=== PATIENT | male | born 1955 | race Caucasian/White ===

== ENCOUNTER 2016-08-19 16:31 | Inpatient (IN) | payer MEDICARE ==
[~2016-08-19] VITALS: Ht 172.7 cm; Wt 93.6 kg
[~2016-08-19 16:31] MED LIST: AMLO10TA3 PO; ASPI-973 PO; CALC500T9 PO; CARV25TA PO; CARV25TA2 PO; FINA5TAB9 PO; FURO80TA83 PO; HYDR-4003 PO; KLO1T PO; LACT10SO60 PO; LISI40TA PO; LON25 PO; RIFA500P3 MC; VIT1TABL50 PO
[2016-08-19 16:40] VITALS: BP 148/80; PULSE 112; RESP 19; O2SAT 91
[2016-08-19 18:10] LABS: BASOPHILS % (AUTO) 2.5 % (0-3); EOSINOPHILS % (AUTO) 4.1 % (0-5); MONOCYTES % (AUTO) 8.3 % (4-12); Mean Corpuscular Hemoglobin 31.7 pg (27.0-35.0); Mean Corpuscular Volume 90.9 fL (81-100); NEUTROPHILS % (AUTO) 63.8 % (40-74); Platelet Count 138 bil/L (150-400)
--- NOTE | 2016-08-19 18:14 | DRSVH ---
PROCEDURE: X-RAY CHEST ONE VIEW, PORTABLE ([id number]) INDICATIONS: 61 year-old male with shortness of breath. TECHNIQUE: One view of the chest was acquired. COMPARISON: [facility], , CHEST 2VW, 11/08/2013, 15:55. FINDINGS: Surgical changes and devices: None. Lungs and pleura: No pleural effusions or pneumothorax. Lungs are clear, except for patchy right lo wer lung airspace opacities. Mediastinum: Mediastinal contours appear normal. Cardiomegaly is unchanged. There is aortic atheros clerosis. Bones and chest wall: No suspicious bony lesions. Overlying soft tissues appear unremarkable. IMPRESSION: Cardiomegaly as before, along with right lower lung aspiration or early pneumonia. Dictated by: Gonzalez Abdul M.D. on 08/19/2016 at 18:12 Approved by: Gonzalez Abdul M.D. on 08/19/2016 at 18:12
--- NOTE | 2016-08-19 18:16 | DRSVH ---
PROCEDURE: X-RAY LEFT FOOT COMPLETE, MINIMUM THREE VIEWS ([id number]) INDICATIONS: 61 year-old male with left foot and heel pain. TECHNIQUE: 3 views of the foot were acquired. COMPARISON: [facility], CR, XR TOE(S) 2VW LT, 06/24/2016, 17:39. FINDINGS: Bones: No fractures or dislocations. No bony destruction or erosions. Soft tissues: There is widespread small vessel atherosclerosis, consistent with diabetes mellitus an d/or hyperparathyroidism. No radiopaque soft tissue foreign bodies. No soft tissue gas. No tibiotalar joint effusion. Achilles tendon appears normal. IMPRESSION: No radiographic evidence for advanced osteomyelitis. Radiographs would have decreased sen sitivity for early bone infection. Dictated by: Gonzalez Abdul M.D. on 08/19/2016 at 18:14 Approved by: Gonzalez Abdul M.D. on 08/19/2016 at 18:14
--- NOTE | 2016-08-19 20:14 | ED.REPORT ---
HPI-General Illness Date of Service Aug 19, 2016 ED Provider: Bety Scott MD History of Present Illness: Mr. Jatin Faulkner is a 61 year old gentleman with a PMH significant for CKD V, Afib, HTN, HEP C/ETOH liver disease, who presents to [facility] emergency department with 5 day history of shortness of breath. He reports missing dialysis on Friday as well as make-up dialysis on Friday. He denies headache, dizziness, syncope, cough, chest pain, abdominal pain, vomiting, constipation, and diarrhea. He reports shortness of breath and mild nausea. His outpatient paste worker is Dr. Velez and his normal dialysis schedule is [facility]. Nursing Notes Stated Complaint: SHORTNESS OF BREATH Chief Complaint: General Complaint Nursing Notes Reviewed: Yes Allergies: Coded Allergies: Penicillins (Verified Allergy, Severe, 06/24/16) clonidine (Verified Allergy, Intermediate, N/V, 06/24/16) Scheduled Amlodipine (Amlodipine) 10 Mg Tablet 10 MG PO HS Aspirin (Aspirin) 81 Mg Tablet 81 MG PO DAILY Carvedilol (Coreg) 25 Mg Tablet 50 MG PO QPM Carvedilol (Carvedilol) 25 Mg Tablet 25 MG PO MORNING Finasteride (Finasteride) 5 Mg Tablet 5 MG PO DAILY Furosemide (Lasix) 80 Mg Tablet 160 MG PO BID Lactulose (Lactulose) 20 Gm/30 Ml Solution 20 GM PO TID Lisinopril (Lisinopril) 40 Mg Tablet 40 MG PO DAILY Rifaximin (Rifaximin) 500 Gm Powder 500 GM MC BID Vit B Cmplx 3/FA/Vit C/Biotin (Nephro-Swetha Rx) 1 Each Tablet 1 EACH PO DAILY Scheduled PRN Calcium Carbonate (Tums) 500 Mg Tab.chew 500 MG PO TID PRN PRN For Dyspepsia or Heartburn Clonazepam (Clonazepam) 1 Mg Tab 1 MG PO HS PRN PRN For Dizziness Hydrocodone-Acetaminophen 5-325 mg (Hydrocodone-Acetaminophen 5-325 mg) 1 Each Tablet 2 TAB PO TID PRN PRN For Pain General Time Seen by MD: 20:13 Chief Complaint Breathing problem Past Medical History Past Medical History Chronic kidney disease, stage 5, on dialysis now for two and half years. Peripheral vascular disease with both surgeries and stents placed. Reports: Congestive heart failure, Diabetes mellitus, Hypertension Smoking History Former Smoker Social History Alcohol Use: Denies alcohol use Drug Use: Denies drug use Ambulatory Status Independent Review of Systems Full Review of Systems Constitutional: Reports: Fatigue, Weakness - generalized Respiratory: Reports: Shortness of breath GI: Reports: Nausea Complete sys rev & neg: except as marked. Physical Exam General: Elderly gentlemen lying in bed in no acute distress, well-developed, well-nourished, appropriately interactive HEENT: Normocephalic, atraumatic. External ears without defect. Pupils equal, round, and reactive to light and accommodation. Anicteric sclerae, moist conjunctivae, and no lid lag. Oropharynx free of erythema and cobble stoning with moist mucosa. Neck: Supple with full range of motion. No jugular venous distension. No bruits. No lymphadenopathy or thyromegaly. Cardiovascular: Regular rate and rhythm with no murmurs, rubs, or gallops appreciated Pulmonary: Clear to auscultation bilaterally with no crackles, wheezes, or rhonchi. Normal respiratory effort with no use of accessory muscles. Abdomen: Bowel tones present. Soft, nontender, nondistended. No hepatosplenomegaly or masses appreciated, obese with tense abdomen. Extremities: No clubbing, cyanosis, lower extremity edema present, or lymphadenopathy appreciated. left lower extremity wound... Skin: Normal temperature, turgor, and texture; no rash, ulcers, or subcutaneous nodules appreciated. Neurological: Cranial nerves grossly intact. Normal muscle strength, tone, and bulk. Reflexes, coordination, and sensory function within normal limits. No known gait impairment. Psychiatric: Normal mood and affect.Alert and oriented to person, place, and time. Vital Signs Vital Signs Date Time Temp Pulse Resp B/P Pulse Ox O2 Delivery O2 Flow Rate FiO2 08/19/16 16:40 36.8 112 19 148/80 91 Room Air Interpretation & Diagnostics Lab Results Interpretation Result Diagram: 08/21/16 0540 08/21/16 0540 Test 08/19/16 18:01 Lactic Acid Level 0.8mmol/L (0.4-2.0) Hold Hall Top Tube Received (Received) Re-Eval/Medical Decision Med Decision/Clinical Course 1. Acute dyspnea, present on admission. Active. - Not on home O2. - CXR - possible left lower lobe pneumonia. - Rapid influenza pending. - IV Rocephin. 2. CKD V, dialysis dependent, present on admission. Active. - Recieved dialysis today. Needs another dialysis tomorrow. - His outpatient paste worker is Dr. Velez and his normal dialysis schedule is [facility]. 3. Chronic A fib with RVR, present on admission. Active. - Home Carvedilol 4. Symptomatic ascites, present on admission. Active. - History of Hep C / ETOH use disorder. 5. Chronic Lower left extremity wound, present on admission. Active. 6. Chronic leukopenia, present on admission. Active. - WBC 3.1, currently around baseline. 7. Chronic Hypertension, present on admission. Stable. Continue home medications. Discharge & Departure Primary Impression: Shortness of breath Additional Impression: Renal failure Disposition: ADMITTED TO HOSPITAL Discharge Condition All VS Reviewed: Yes Condition: No Change Referrals: Juan Manuel Yadav MD (PCP) Attending Statement Pt seen and examined with Dr Ye. Agree with exam, assessment and plan as above. Admitted to hospital. Bety Scott MD Aug 19, 2016 20:14 ROMEO YE DO Aug 19, 2016 20:35 Carbon Dioxide Level 24mmol/L (18-29) Blood Urea Nitrogen 32mg/dL (8-27) Creatinine 6.61mg/dL (0.76-1.27) Estimat Glomerular Filtration Rate 9mL/min (>59) Glucose Level 114mg/dL (60-99) Lactic Acid Level 0.8mmol/L (0.4-2.0) Calcium Level 8.6mg/dL (8.5-10.1) Total Bilirubin 0.3mg/dL (0.0-1.2) Aspartate Amino Transf (AST/SGOT) 23U/L (0-50) Alanine Aminotransferase (ALT/SGPT) 17U/L (0-44) Alkaline Phosphatase 89U/L (25-160) Total Protein 6.7g/dL (6.4-8.4) Albumin 3.8g/dL (3.4-5.0) Hold Hall Top Tube Received (Received) Re-Eval/Medical Decision Med Decision/Clinical Course 1. Acute dyspnea, present on admission. Active. - Not on home O2. - CXR - possible left lower lobe pneumonia. - Rapid influenza pending. - IV Rocephin. 2. CKD V, dialysis dependent, present on admission. Active. - Recieved dialysis today. Needs another dialysis tomorrow. - His outpatient paste worker is Dr. Velez and his normal dialysis schedule is [facility]. 3. Chronic A fib with RVR, present on admission. Active. - Home Carvedilol 4. Symptomatic ascites, present on admission. Active. - History of Hep C / ETOH use disorder. 5. Chronic Lower left extremity wound, present on admission. Active. 6. Chronic leukopenia, present on admission. Active. - WBC 3.1, currently around baseline. 7. Chronic Hypertension, present on admission. Stable. Continue home medications. Discharge & Departure Primary Impression: Shortness of breath Additional Impression: Renal failure Disposition: ADMITTED TO HOSPITAL Discharge Condition All VS Reviewed: Yes Condition: No Change Referrals: Juan Manuel Yadav MD (PCP) Bety Scott MD Aug 19, 2016 20:14 ROMEO YE DO Aug 19, 2016 20:35
[2016-08-19] MEDS ORDERED: cefTRIAXone Inj 2,000 MG in IV Premix 1 EACH IV ONE (21:35)
[2016-08-19] MEDS ORDERED: oxyCODONE-Acetamin 5-325 mg Tablet PO PRN (22:45)
[2016-08-19] MEDS ORDERED: Alum-Mag Hydrox-Simeth 30 mL Suspension PO PRN (22:45)
[2016-08-19] MEDS ORDERED: Polyethylene Glycol (PEG) 17 Gm Powder PO PRN (22:45)
[2016-08-20] VITALS (9 sets, daily range): BP systolic 137–165; BP diastolic 79–95; PULSE 94–122; RESP 18–20; O2SAT 93–97
[2016-08-20] MEDS ORDERED: Meropenem Inj 2,000 MG in 0.9% Sodium Chloride 100 ML IV SCH (00:30)
[2016-08-20 00:48] LABS: INR 1.05 ratio
--- NOTE | 2016-08-20 04:10 | PCM.HPMED ---
Subjective Date of Service Aug 19, 2016 Primary Provider: Admitting Physician: Kaitlin Hua MD Primary Care Physician: Juan Manuel Yadav MD Attending Physician: Kaitlin Hua MD Chief Complaint: Weakness, increasing SOB, and "foggy" History of Present Illness: 61 year old male with hx of T2DM, ESRD on hemodialysis, PVD, Afib not on anticoagulation and hepatitis C with cirrhosis and ascites presents to the ED with 3 days of increasing weakness, SOB, and pain in his left foot.He states that the cough started 3 days ago, has been intermittent, and non-productive. He endorses intermittent nausea and anorexia but denies fever, chills, or vomiting/diarrhea. He states that he has also had increasing pain in his left foot second to severe peripheral vascular disease with calcification. He missed his dialysis appointment on Friday and missed the follow-up dialysis appointment on Friday. However, he did have dialysis today from Dr. Velez, having 3.5L of fluid removed in 3 hours. His SOB continued to get worse and he came to the ED for evaluation. His PVD is managed here by Dr. Gómez. He underwent a cath procedure 2 weeks ago in an effort to improve blood flow, which says failed and will now be managed by [facility] or . In the ED the patient was given ceftriaxone for presumed pneumonia by CXR; Review of Systems: A comprehensive review of systems was conducted with the patient and found to be negative except as above in the History of Present Illness. Allergies Coded Allergies: Penicillins (Verified Allergy, Severe, 06/24/16) clonidine (Verified Allergy, Intermediate, N/V, 06/24/16) Home Medications Amlodipine (Amlodipine) 10 Mg Tablet 10 MG PO HS Aspirin (Aspirin) 81 Mg Tablet 81 MG PO DAILY Carvedilol (Coreg) 25 Mg Tablet 50 MG PO QPM Carvedilol (Carvedilol) 25 Mg Tablet 25 MG PO MORNING Finasteride (Finasteride) 5 Mg Tablet 5 MG PO DAILY Furosemide (Lasix) 80 Mg Tablet 160 MG PO BID Lactulose (Lactulose) 20 Gm/30 Ml Solution 20 GM PO TID Lisinopril (Lisinopril) 40 Mg Tablet 40 MG PO DAILY Minoxidil (Minoxidil) 2.5 Mg Tablet 2.5 MG PO BID Rifaximin (Rifaximin) 500 Gm Powder 500 GM MC BID Vit B Cmplx 3/FA/Vit C/Biotin (Nephro-Swetha Rx) 1 Each Tablet 1 EACH PO DAILY Calcium Carbonate (Tums) 500 Mg Tab.chew 500 MG PO TID PRN PRN For Dyspepsia or Heartburn Clonazepam (Clonazepam) 1 Mg Tab 1 MG PO DAILY PRN PRN For Dizziness Hydrocodone-Acetaminophen 5-325 mg (Hydrocodone-Acetaminophen 5-325 mg) 1 Each Tablet 2 TAB PO TID PRN PRN For Pain PMH Chronic kidney disease, stage 5, on dialysis now for two and half years. Peripheral vascular disease with both surgeries and stents placed. Reports: Congestive heart failure, Diabetes mellitus, Hypertension Hepatitis C Surgical History Cholescystectomy Bilateral lower extremity bypass x 2 Family History Mom of unknown cancer father of cardiac disease Social History Hx Alcohol Use: Yes (former heavy drinker) Hx Substance Use: Yes (IV drug use- heroin and methamphetamines, last use 12 years ago) Hx Tobacco Use: No Smoking Status: Former Smoker (20+ ppd hx) Living Arrangement: with Family (with exwife) Exam Vital Signs Vital Sign - Last Date Time Temp Pulse Resp B/P Pulse Ox O2 Delivery O2 Flow Rate FiO2 08/19/16 16:40 36.8 112 19 148/80 91 Room Air Exam General: No acute distress, well-developed; seems flat affect HEENT: PERRLA; old petechia-like scleral hemorrhages Neck: Supple with full range of motion. JVD present. No bruits. No lymphadenopathy or thyromegaly. Cardiovascular: Irregularly irregular; no m/r/g Pulmonary: CTA but decreased; mild diffuse wheezes and course airways Abdomen: significant ascites; no fluid wave demonstrated; +bs; mildly tender in URQ; hepatomegaly Extremities: No clubbing; cyanosis in lower extremities bilaterally, moderate edema appreciated. Skin: good turgor; ulcer on left 2nd toe; ulcer on sacrum; Neurological: Cranial nerves grossly intact. sensation intact throughout Psychiatric: flat affect. Alert and oriented to person, place, and time. Lab and Diagnostics Result Diagram: 08/19/16180008/19/161800 X-Rays, CTs and MRIs Chest X-ray IMPRESSION: Cardiomegaly as before, along with right lower lung aspiration or early pneumonia. Dictated by: Gonzalez Abdul M.D. on 08/19/2016 at 18:12 Left Foot X-ray IMPRESSION: No radiographic evidence for advanced osteomyelitis. Radiographs would have decreased sensitivity for early bone infection. Dictated by: Gonzalez Abdul M.D. on 08/19/2016 at 18:14 12-lead ECG irregularly irregular with rate < 120; concern for mild ST depression in lateral leads Assessment & Plan Confusion and weakness in patient with hepato-renal syndrome - Pt complains of three days of general malaise with stable ascites - Pt missed dialysis on Friday and Friday and then had 3.5L taken off in 3 hours today - BUN mildly elevated, no hypoglycemia, questionable sepsis as below; blood pressure elevated without headache - Ammonia level ordered - Electrolytes within reason with mild hyponatremia and hypochloremia - Continuing home lactulose Acute fluid overload second to ESRD second to htn, dm2, and hep c; present on admission, ongoing - JVD, edema, moist membranes, appropriate skin turgor - CXR appears to be congested with cephalization - Discussed case with Dr. Bowen over the phone and she will see him tomorrow morning for additional evaluation - Avoid additional fluid as much as possible Acute on chronic systolic CHF; present on admission; ongoing - Last ECHO was 12/20/14 with no EF but recognition of dilated LV - CXR appears to be congested with cephalization; pitting edema in LE - Cannot diurese due to kidney failure - ECHO tomorrow - Continue home carvedilol and lisinopril tomorrow - Hold furosemide until seen by nephrology Questionable sepsis second to questionable aspiration pneumonia - leukopenia, tachycardia, no fever, no tachypnea all in the setting of ESRD with chronic leukopenia and atrial fibrillation - no lactate elevation - Very low suspicion for ongoing sepsis and will not give fluid due to his current overload picture with dyspnea. Questionable pneumonia - no cough, no fever, no chills, but does complain of sob that started today - RLL consolidation on CXR per radiology, along with pulmonary edema pic - Started on Ceftriaxone in ED prior to any blood cultures - Blood cultures ordered x 2 - Changed abx to meropenem; pt has allergy to penicillins and will watch for cross-sensitivity - Sputum cx ordered; bcx ordered but taken after abx given Ulcerated and necrotic appearing left 2nd toe second to severe peripheral vascular disease s/p bilateral bypass grafts x 2 - CXR of left foot did not identify early osteomyelitis; does look like toe is becoming necrotic; - Dr. Gómez is currently working this patient up for intervention outpatient; per pt, recent attempt to stent arteries failed two weeks ago due to calcinosis - Wound care consult Chronic atrial fibrillation not on anticoagulation - pt currently in afib on exam and on EKG - taking carvedilol at home for rate control; rate currently 112 - Check PT/INR - consider starting Lovenox and until warfarin therapeutic in AM - Restart home carvedilol hepatitis c with cirrhosis - untreated, acquired 15+ years ago from IV drug abuse with cocaine and heroin - Not following with ID or with junior java developer - prominent ascites; consider tapping in AM; low suspicion for SBP at this point as there is no abdominal tenderness - PT/INR pending Chronic leukopenia - likely second to ESRD and chronic hepatic cirrhosis second to hepatitis C and alcohol/drug abuse - will monitor but unlikely to improve Chronic and severe peripheral vascular disease - worked up outpatient; ulcer on left 2nd toe; interventions performed bilaterally with bypassx2 on each side - edema present in LE with cyanosis below the knee DM2 not on medications - Mildly hyperglycemic on admit - Consider starting on insulin correctional in AM for BG > 180 Chronic htn - Continue home medications Dispo: Pt is being admitted to general medical floor with anticipated LOS < 2 midnights; however, should patient decompensate or need extended inpatient dialysis and diagnostics, will change to inpatient. MED REC TO BE DONE BY DAY TEAM Addendum day hospitalist> pt looked overloaded based on exam, hx suggested significant wt gain, noncompliance to HD, CXR showed pul vascular congestion, no s/s of PNA, procalcitoninx2 minimal, remained afebrile, will tx as CHF exacerbation, likely with additional HD session, appreciate renal input. stop meropenem. Lt second toe looked discolored but unchanged since last angioplasty 08/08 per patient, only pain has increased mildly, this is not major concern, pt already has plan to refer to [facility] in the future, pt stated that didn't have adequate device for calcified occlusion for his lesion. Therefore will defer further for PVD at this point. Attending Statement Pt seen and examined by myself and agree with above plan. Kavin Ball DO Aug 19, 2016 23:35 Jian Velásquez MD Aug 20, 2016 12:08 Kaitlin Hua MD Aug 21, 2016 06:14
[2016-08-20] MEDS: oxyCODONE-Acetamin 5-325 mg Tablet PO PRN ×3 (05:11→15:40)
--- NOTE | 2016-08-20 05:39 | NUR ---
Admit Admitted pt from ED around 0015. Pt denies chest pain, but has been complaining of pain on his left leg. Administered Percocet 2 tab PRN for pain control. Pt has been having SOB on RA, provide 2LPM o2 for comfort and no complaints after. Admission question done and med rec done via pt interview. Will continue to monitor.
[2016-08-20 05:46] LABS: BASOPHILS % (AUTO) 2.9 % (0-3); EOSINOPHILS % (AUTO) 3.9 % (0-5); MONOCYTES % (AUTO) 9.4 % (4-12); Mean Corpuscular Hemoglobin 30.9 pg (27.0-35.0); Mean Corpuscular Volume 91.7 fL (81-100); NEUTROPHILS % (AUTO) 62.1 % (40-74); Platelet Count 127 bil/L (150-400)
--- NOTE | 2016-08-20 08:27 | DRSVH ---
PROCEDURE: X-RAY CHEST ONE VIEW, PORTABLE ([id number]) INDICATIONS: dyspnea TECHNIQUE: One view of the chest was acquired. COMPARISON: [facility], CR, XR CHEST 1VW (PORTABLE), 08/19/2016, 17:26. FINDINGS: Surgical changes and devices: None. Lungs and pleura: No pleural effusions or pneumothorax. Lungs are edematous. Mediastinum: Mediastinal contours appear normal. Heart size is mildly enlarged. Bones and chest wall: No suspicious bony lesions. Overlying soft tissues appear unremarkable. IMPRESSION: Chronic CHF pattern with mild acute exacerbation. An alternative explanation for the cur rent appearance is an atypical pneumonia present bilaterally. Dictated by: Jose Ellington M.D. on 08/20/2016 at 8:25 Approved by: Jose Ellington M.D. on 08/20/2016 at 8:25
[2016-08-20] MEDS: Lactulose 20 Gm/30 mL 30 mL Syrup PO SCH ×5 (08:30→21:39)
[2016-08-20] MEDS ORDERED: Meropenem 1 Gm/100 mL NS Minibag Plus IV SCH ×2 (08:30)
[2016-08-20] MEDS ORDERED: 0.9% Sodium Chloride 250 ML ONE (09:02)
[2016-08-20] MEDS: Heparin 5,000 Unit/mL Inj SUBQ SCH ×2 (09:45→22:00)
--- NOTE | 2016-08-20 13:06 | NUR ---
Wound Care Wound orders received, pt seen at bedside. 61 yo male with PMX diabetes, PAD, ESRD presents with necrotic right 2nd toe tip and heel fissure (1cm). Pt is seen by senior cytogenetics laboratory director [place] in [place] for foot care, recently had angioplasty for right toe ischemia with Dr Matos that was unsuccessful per patient due to heavy buildup of calcium in the vessel. Right second toe does not appear currently infected, nor does heel fissure. Recommend dry dressings on toe of betadine moistened gauze, change daily, moisturizer to right heel. I believe that Dr Rodríguez has been consulted on this patient per Nursing. Will defer to Dr Sheehan recommendations. Addendum: 08/20/16 at 1319 by DONALDO MERCADO [facility] Sorry please note wounds noted above are on left foot.
--- NOTE | 2016-08-20 13:54 | NUR ---
Dialysis Pt [place] [facility] [place] Report called to Zulma Koroma IV infusing ABX. RA. MRSA/Viral swabs pending at this time. Pt is [place] and refusing lactulose, verbal responses are oriented but very delayed. Addendum: 08/20/16 at 1809 by DEANA PEACOCK RN Repeated requested to chemical engineering intern that treatment be limited to only 2 hrs. Returned to room via bed by RN and SUPERVISOR PRE WAVE. Plan is to return to normal dialysis txs again tomorrow.
--- NOTE | 2016-08-20 14:43 | CONS ---
[address] [address] CONSULTATION REPORT PATIENT: ZACHARY GARCIA : 1955 MR#: [id number] ADMIT: 08/19/2016 JOB ID: [id number] DATE OF SERVICE: 08/20/2016 NEPHROLOGY CONSULTATION: REQUESTING PHYSICIAN: Dr. Kaitlin Hua REASON FOR CONSULTATION: Management of end-stage renal disease. CHIEF COMPLAINT: Shortness of breath. HISTORY OF PRESENT ILLNESS: This is a 61-year-old male with significant past medical history of type 2 diabetes, end-stage renal disease, on hemodialysis every Friday, Friday and Friday, chronic hepatitis C with cirrhosis, peripheral vascular disease, anemia in chronic kidney disease and renal osteodystrophy presented to the hospital with a complaint of the weakness and shortness of breath. The patient was recently admitted at the [facility] between June 24 and June 27 due to lower GI bleed. He came in this time with a complaint of weakness and shortness of breath. He also complaining of dry cough. He has lower extremity swelling and discoloration of the left foot. The patient had dialysis yesterday with 3.5 L of fluid removal. He stated that he feels like he will need an extra dialysis today given worsening shortness of breath. The initial workup showed a chest x-ray showed the chronic CHF pattern with mild acute exacerbation. The patient was also started on the broad-spectrum IV antibiotics treating for possible healthcare associated pneumonia. Renal was consulted to continue dialysis while he is hospitalized. PAST MEDICAL HISTORY: 1. End-stage renal disease, on hemodialysis every Friday, Friday and Friday. 2. Chronic hepatitis C infection. 3. Alcoholic liver disease. 4. Chronic atrial fibrillation. 5. Hypertension. 6. History of GI bleed. 7. Peripheral vascular disease. 8. Type 2 diabetes. 9. Chronic congestive heart failure. PAST SURGICAL HISTORY: 1. Status post AV fistula creation. 2. Status post cholecystectomy. 3. Status post bilateral lower extremity bypass x2. FAMILY HISTORY: Positive for heart disease and cancer. No kidney disease in the family. SOCIAL HISTORY: The patient is a former smoker and drinker. He also had history of IV drug use including heroin and methamphetamine. ALLERGIES: PENICILLINS and CLONIDINE. REVIEW OF SYSTEMS: A 14-point review of systems was performed. PHYSICAL EXAMINATION: Vitals: Temperature 36.8, pulse 94, respiratory rate 20, blood pressure 165/79, O2 sat 97% on nasal cannula 2 L. General appearance: Chronically ill-looking, in no acute distress. 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 HEENT: Mild pallor. No jaundice. No JVD. No lymphadenopathy. No thyroid gland enlargement. Heart: Regular rhythm. Normal S1, S2. No murmurs, rubs or gallops. Lungs: Coarse crackles at the bases. Expiratory wheezing noted. Abdomen: Soft, active bowel sounds. Mild distention. Nontender. Extremities: 2+ edema on the lower extremity. Poor dorsalis pedis. Some discolorations on the left foot. LABORATORY: Sodium 129, potassium 5.2, chloride 86, bicarbonate 24, BUN 38, creatinine 7.28, glucose 92, calcium 9.2, ammonia 42. ASSESSMENT: 1. End-stage renal disease with fluid overload. 2. Shortness of breath secondary to fluid overload and possible healthcare associated pneumonia. 3. Chronic systolic heart failure. 4. Chronic hepatitis C infection with history of alcoholic liver disease. 5. Severe peripheral vascular disease status post bilateral bypass graft. PLAN: 1. We will arrange for extra hemodialysis today with ultrafiltration 3-4 L. We will resume his routine dialysis day tomorrow. We will arrange for 4 hours with ultrafiltration of 4 L. 2. We will monitor along with the primary care team. Thank you for the consultation.
--- NOTE | 2016-08-20 15:23 | NUR ---
Social Work-attempted initial assessment: Data:EMR Reviewed. Pt is a 61 y/o male who was admitted on 08/19/16 for pneumonia per H&P. Pt's insurance is [employer] and PCP is Juan Manuel Yadav MD. EMR reviewed. SW attempted to see pt, but pt currently in dialysis on [facility]. SW walked over to [facility] To see pt, but RN In room and not a good time to see pt. SW to follow up tomorrow to complete assessment. SW will continue to follow. Assessment:Pt who is independent at baseline. Plan:SW to follow up tomorrow to complete assessment. SW will continue to follow. ROBINA Rogers
--- NOTE | 2016-08-20 17:00 | DRSVH ---
[facility] [address] [place] [address] Echocardiogram Report Name: ZACHARY GARCIA Study Date: 08/20/2016 Height: 68 in Hospital Exam Location: [facility] Weight: 215 lb Gender: Male BSA: 2.1 m2 : 1955 Age: 61 yrs BP: 143/87 mmHg Reason For Study: Congestive Heart Failure Ordering Physician: HOSPITALIST YOLANDAerformed By: Chandan Garcia Referring Physician: LAMONT LEDEZMA Interpretation Summary 1. Mildly dilated left ventricle with globally reduced systolic function and an estimated EF of 45 to 50% 2. The right ventricle is not optimally visualized, however it appears at least mildly dilated. The systolic function appears low normal to mildly reduced. The estimated RVSP is 55 mm Hg. The estimated right atrial pressure is elevated. 3. There is moderate mitral annular calcification with an area of prominent calcification seen near the posterior leaflet (with a somewhat mobile calcified structure). This was seen on the previous echo of 06/04/16. Clinical correlation is recommended. The mean gradient across the mitral valve is consistent with moderate mitral stenosis (similar to the estimate of the echo of 05/2016). Compared to the previous study (images and report reviewed), the estimated right atrial pressure has increased - other findings appear relatively stable. The rhythm has changed as well. Procedure: A two-dimensional transthoracic echocardiogram with color flow and Doppler was performed. The study quality was technically adequate. Comparison is made with the echocardiogram of 06/04/16. The patient was in atrial fibrillation with rapid ventricular response during the exam with a heart rate exceeding 100 bpm. Left Ventricle: There is mild concentric left ventricular hypertrophy. The left ventricle is mildly dilated. 5.9. The ejection fraction is estimated to be 45-50%. Right Ventricle: The right ventricle is normal size. The right ventricle is not optimally visualized to assess size. However, in the limited views obtained, it appears mildly dilated. Right ventricular systolic function is borderline reduced. Atria: The left atrium is moderately dilated. The right atrium is severely dilated. No color doppler evidence for an ASD. Mitral Valve: The mitral valve leaflets are moderately calcified. The mitral valve chordae are thickened and/or calcified. There is moderate mitral annular calcification. There is a mobile echogenicity on the atrial side of the posterior mitral valve apparatus. Consider mobile calcifaction vs. old vegetation. The mitral valve mean gradient is 7 mmHg. There is mild mitral regurgitation. Aortic Valve: The aortic valve is trileaflet. The aortic valve opens well. No aortic regurgitation is present. Tricuspid Valve: The tricuspid valve is not well visualized, but is grossly normal. There is mild to moderate tricuspid regurgitation. The right ventricular systolic pressure is estimated at 55 mmHg assuming a right atrial pressure of 15 mm Hg. Pulmonic Valve: The pulmonic valve leaflets are thin and pliable; valve motion is normal. There is a trace or physiologic amount of pulmonic regurgitation. Great Vessels: The aortic root is normal size. The ascending aorta is mildly enlarged. The ascending aorta measures 3.9 cm. The pulmonary artery is normal size. The IVC is dilated (diameter is greater than 2.1 cm) and it collapses less than 50% with a sniff. This suggests a high right atrial pressure of 15 mm Hg. Pericardium/ Pleura There is no pericardial effusion. There is no pleural effusion. MMode/2D Measurements & Calculations LVIDd: 5.9 cm RA long axis: 7.3 cm LVOT diam LVIDs: 5.1 cm LA A2 area: 29.0 cm FS: 12.5 % LA A4 area: 27.0 cm RA area: 33.2 cm AoV Opening EPSS: 2.3 cm LA length (vol): 7.4 cm RA vol: 128.3 ml IVSd: 1.2 cm LA vol: 89.6 ml RA : 60.9 ml/m2 Ao root diam LVPWd: 1.3 cm LA vol index: 42.5 ml/m asc Aorta Diam IVC diam: 3.1 cm EDV(MOD-sp2) LV candelaria. diameter/BSA LV sys. diameter/BSA TAPSE: 1.1 cm (cm/m^2): 2.8 (cm/m^2): 2.4 Doppler Measurements & Calculations Med Peak E' Mehrdad TR max mehrdad MV V2 mean PA V2 mean : 303.3 cm/sec : 125.1 cm/sec : 47.7 cm/sec Lat Peak E' Mehrdad TR max PG MV mean PG PA pr(Accel) : 36.9 mmHg : 21.4 mmHg PA V2 max MV V2 VTI: 29.0 cm : 65.1 cm/sec PA mean PG : 0.98 mmHg Reading Physician:05:00 PM
--- NOTE | 2016-08-20 17:30 | NUR ---
Dialysis note: 3 1/2 hrs tx. 3000 ml net UF. Right lower arm fistula. Pls see DTR for VS details. Qb 400. Heparin prime given. O2 @ 2L via NC on. PRN Percocet 2 tabs po given for left foot pain. Tolerated tx, slept at intervals. Fistula needle sites clotted w/in 10 min. Report given to Zulma TOBIN. Transferred back to patient's room in stable condition.
[2016-08-20] MEDS ORDERED: Meropenem Inj 1,000 MG in IV Premix 1 EACH IV SCH (20:30)
[2016-08-20] MEDS: HYDROcodone-APAP 5-325 mg Tablet PO PRN (22:21)
[2016-08-21] VITALS (8 sets, daily range): BP systolic 121–159; BP diastolic 64–95; PULSE 86–125; RESP 18–20; O2SAT 94–98
[2016-08-21] MEDS: HYDROcodone-APAP 5-325 mg Tablet PO PRN ×5 (05:49→21:30)
[2016-08-21 06:52] LABS: Magnesium 2.1 mg/dL (1.6-2.6); Phosphorus 5.7 mg/dL (2.5-4.9)
[2016-08-21 06:56] LABS: BASOPHILS % (AUTO) 3.8 % (0-3); EOSINOPHILS % (AUTO) 4.4 % (0-5); MONOCYTES % (AUTO) 17.1 % (4-12); Mean Corpuscular Volume 92.8 fL (81-100); NEUTROPHILS % (AUTO) 48.7 % (40-74); Platelet Count 130 bil/L (150-400)
[2016-08-21] MEDS: Heparin 5,000 Unit/mL Inj SUBQ SCH ×2 (08:11→21:11)
[2016-08-21] MEDS: Lactulose 20 Gm/30 mL 30 mL Syrup PO SCH ×3 (08:12→20:30)
--- NOTE | 2016-08-21 09:02 | NUR ---
Social Work-initial assessment: Data:See initial assessment. Pt is a 61 y/o male who was admitted on 08/19/16 for pneumonia per H&P. Pt's insurance is [employer] and PCP is Juan Manuel Yadav MD. EMR reviewed. Pt's readmission score is 3-high risk. ANGIE met with pt at bedside, ANGIE role explained. Pt is alert and oriented x3, Hard of hearing. Pt resides at home with his ex- in [place] where he remains independent with ADls. Pt has a fww at home and does drive. Pt has no HH or SNF history. 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 ANGIE discussed DPOA/ advanced directive with pt, pt states he has the information and will continue to work on this. SW encouraged pt to get this completed. Pt states his ex- has been assisting him at home, but may be leaving in the next month or so. ANGIE discussed private pay caregiving, but states he does not have a lot of money. SW discussed Medicaid, pt states he is not currently on this. ANGIE discussed FARA and Medicaid application. ANGIE provided pt with Medicaid application and information about FARA. Pt goes to dialysis three days a week in [place] at [facility]. Per RN notes, pt has been up independent in his room. Pt does not anticipate any discharge needs. Pt states his ex- will provide transport home. ANIGE provided pt with ANGIE phone number and plan on white board in room. SW will continue to follow if needs arise. Assessment:Pt who is independent at baseline. Plan:Pt to discharge home when medically stable via POV. No anticipated discharge needs. ANGIE has provided pt with Medicaid application and FARA information. ANGIE will continue to follow if needs arise. ROBINA Rogers Addendum: 08/21/16 at 0911 by YANNI WARD Amended: Links added.
--- NOTE | 2016-08-21 09:04 | PCM.PNMED ---
Subjective Date of Service Aug 21, 2016 Subjective Patient states that his breathing is better and is requesting more cough. He denies any social dyspnea, nausea, vomiting, diarrhea, chest pain. Exam Vital Signs Vital Sign - Last Date Time Temp Pulse Resp B/P Pulse Ox O2 Delivery O2 Flow Rate FiO2 08/21/16 04:39 37.0 109 20 138/75 98 Nasal Cannula 2.00 Intake and Output 08/20/16 08/20/16 08/21/16 Cumulative From/Thru 15:00 23:00 07:00 08/20/16 00:01 - 08/21/16 06:15 Intake Total 470 ml 118 ml 838 ml Output Total 3000 ml 100 ml 100 ml 3550 ml Balance -3000 ml 370 ml 18 ml -2712 ml Intake Oral 470 ml 118 ml 788 ml IV Total 50 ml Output Urine Total 100 ml 100 ml 550 ml Ultrafiltrate 3000 ml 3000 ml # Bowel Movements 1 1 Exam Neck is supple without adenopathy thyromegaly or jugular venous distention. Lungs show a few scattered rhonchi but otherwise his breath sounds were clear though diminished bilaterally. Heart is regular rhythmical with a soft systolic murmur. Abdomen soft without any tenderness or rebound guarding masses or hepatosplenomegaly. Extremities showed some brawny induration with edema in both distal lower extremities. There are no discrete skin breakdown lesions noted. Lab and Diagnostics Result Diagram: 08/21/16 0540 08/21/16 0540 X-Rays, CTs and MRIs Chest X-ray IMPRESSION: Cardiomegaly as before, along with right lower lung aspiration or early pneumonia. Dictated by: Gonzalez Abdul M.D. on 08/19/2016 at 18:12 Left Foot X-ray IMPRESSION: No radiographic evidence for advanced osteomyelitis. Radiographs would have decreased sensitivity for early bone infection. Dictated by: Gonzalez Abdul M.D. on 08/19/2016 at 18:14 12-lead ECG irregularly irregular with rate < 120; concern for mild ST depression in lateral leads Assessment & Plan Impression #1 end-stage renal disease dialysis dependent #2 peripheral vascular disease #3 known diabetic nephropathy Recommendations #1 patient is dialyzed today for 2-1/2 hours on the 2K bath. We will also try to take 2-3 L of fluid removed today. Ricky French DO Aug 21, 2016 09:04
--- NOTE | 2016-08-21 10:39 | NUR ---
ALBERTO: Patient off floor for dialysis
--- NOTE | 2016-08-21 11:00 | NUR ---
Patient transferred Pt transferred care to this RN while he is on HD.
[2016-08-21 11:17] LABS: APPEARANCE,URINE SLIGHTLY CLOUDY (CLEAR,HAZY); COLOR,URINE BLOODY (YELLOW); OCCULT BLOOD,URINE LARGE (NEGATIVE); UROBILINOGEN,URINE NORMAL (NORMAL)
--- NOTE | 2016-08-21 13:45 | NUR ---
Dialysis note: 2 1/2 hrs PUF. 3000 ml net UF. Right lower arm fistula. Pls see DTR for VS details. Qb 400-500. Heparin prime given. O2 @ 2L via NC on. Tolerated tx, slept at intervals. Fistula needle sites clotted w/in 10 min. Report given to Kamilah Dillard RN. Transferred back to patient's room in stable condition.
--- NOTE | 2016-08-21 16:33 | DRSVH ---
PROCEDURE: US DUPLEX DOPPLER UNILATERAL LEG ARTERIES, LEFT INDICATIONS: lt toe necrosis knownPVD TECHNIQUE: Color and pulse Doppler interrogation was performed of the left lower extremity arterial system, with image documentation. COMPARISON: None. FINDINGS: Common femoral artery: 65 cm/sec, with monophasic flow. Deep femoral artery: Occluded. Proximal superficial femoral artery: Occluded. Mid superficial femoral artery: Occluded. Distal superficial femoral artery: Occluded. Popliteal artery: 20 cm/sec, with monophasic flow. Posterior tibial artery: 12 cm/sec, with monophasic flow. Anterior tibial artery/dorsalis pedis: 14-18 cm/sec, with monophasic flow. Duran-scale imaging description: Occluded left superficial and deep femoral arteries with reconstituti on of slow flow in the left distal popliteal. IMPRESSION: Occluded left superficial femoral artery and deep femoral artery with reconstitution of s low flow in the distal left popliteal artery. Dictated by: Maria Eugenia Álvarez MD, PhD on 08/21/2016 at 16:31 Approved by: Maria Eugenia Álvarez MD, PhD on 08/21/2016 at 16:31
--- NOTE | 2016-08-21 18:18 | NUR ---
Wound Care Rechecked on patient, no podiatry note is noted in EMR. Recommend betadine, bandaid and tape to necrotic left 2nd toe and heel fissure. Per patient another arterial procedure is pending. Dressing at toe can be changed PRN.
--- NOTE | 2016-08-21 20:17 | PCM.PNMED ---
Subjective Date of Service Aug 21, 2016 Subjective Patient was seen after hemodialysis and he has no new complaints. He states he still has some shortness of breath but is feeling better. He is very hungry and wants to eat and sit up at the side of the bed. Exam Vital Signs Vital Sign - Last Date Time Temp Pulse Resp B/P Pulse Ox O2 Delivery O2 Flow Rate FiO2 08/21/16 18:44 36.7 125 20 149/78 96 Room Air 08/21/16 10:10 2.00 Intake and Output 08/20/16 08/20/16 08/21/16 Cumulative From/Thru 15:00 23:00 07:00 08/20/16 00:01 - 08/21/16 06:15 Intake Total 470 ml 118 ml 838 ml Output Total 3000 ml 100 ml 100 ml 3550 ml Balance -3000 ml 370 ml 18 ml -2712 ml Intake Oral 470 ml 118 ml 788 ml IV Total 50 ml Output Urine Total 100 ml 100 ml 550 ml Ultrafiltrate 3000 ml 3000 ml # Bowel Movements 1 1 Exam General: Patient is in no apparent distress. He was seen after hemodialysis and was quite comfortable. He is still combining of some shortness of breath. HEENT: Head is atraumatic normocephalic. Eyes: Pupils are equally round and reactive to light and accommodation. Extraocular muscles are intact. Sclera are white anicteric. Subconjunctival mucosa is pink. Ears and nose are unremarkable. Oropharynx: There is no mucosal lesions, there is no thrush, there is no pharyngitis. Neck: Is supple, there are no nodes or masses or tenderness. Chest: Is clear to auscultation and percussion. There are no rales, rhonchi, wheezes or rubs. Heart: Rate, rhythm is regular. There is no murmur, rub or gallop. Abdomen: Good bowel sounds are present. Abdomen is soft, nontender, no organomegaly or masses were appreciated. Extremities: The distal tip of the left second toe shows some evidence of dry gangrene. Pulses are diminished bilaterally. Neurologic: There are no focal neurological deficits. Cranial nerves II through XII are intact. There are no sensory or motor deficits. Psychiatric: Patients mood is calm and shows no sign of agitation. Genital: Deferred Rectal: Deferred Lab and Diagnostics Result Diagram: 08/21/16 0540 08/21/16 0540 Microbiology Name: JOSEZACHARY Age/Sex: 61/M Attend Dr: Kaitlin Hua MD Acct: [id number] Unit: [id number] Status: ADM [place] [facility] [place]08/19[place] Disch: Specimen: [id number] Collected: 08/21/16 Status: RES Req#: [id number] Received: 08/21/16 Source: SPUTUM EXP Sp Desc : Subm Dr: Kavin Ledezma DO Ordered: GRAM SPT REFLEX, SPUTUM CULTURE Comments: Collected by Nurse/Unit? Y/N Y Procedure Result Verified Site Microbiology JN CULT SPUTUM Final 08/21/16-1729 SPT GRAM STAIN RARE EPITHELIAL CELLS RARE POLYS RARE MIXED NORMAL HIRA This Spec is of good Quality and acceptable for Cult X-Rays, CTs and MRIs Chest X-ray IMPRESSION: Cardiomegaly as before, along with right lower lung aspiration or early pneumonia. Dictated by: Gonzalez Abdul M.D. on 08/19/2016 at 18:12 Left Foot X-ray IMPRESSION: No radiographic evidence for advanced osteomyelitis. Radiographs would have decreased sensitivity for early bone infection. Dictated by: Gonzalez Abdul M.D. on 08/19/2016 at 18:14 12-lead ECG irregularly irregular with rate < 120; concern for mild ST depression in lateral leads Cardiac Echo Impressions Echocardiogram Report Name: ZACHARY GARCIA Study Date: 08/20/2016 Height: 68 in Hospital Exam Location: [facility] Weight: 215 lb Gender: Male BSA: 2.1 m2 : 1955 Age: 61 yrs BP: 143/87 mmHg Reason For Study: Congestive Heart Failure Ordering Physician: HOSPITALIST SVHPerformed By: Chandan Garcia Referring Physician: KAIVN LEDEZMA Interpretation Summary 1. Mildly dilated left ventricle with globally reduced systolic function and an estimated EF of 45 to 50% 2. The right ventricle is not optimally visualized, however it appears at least mildly dilated. The systolic function appears low normal to mildly reduced. The estimated RVSP is 55 mm Hg. The estimated right atrial pressure is elevated. 3. There is moderate mitral annular calcification with an area of prominent calcification seen near the posterior leaflet (with a somewhat mobile calcified structure). This was seen on the previous echo of 06/04/16. Clinical correlation is recommended. The mean gradient across the mitral valve is consistent with moderate mitral stenosis (similar to the estimate of the echo of 05/2016). Assessment & Plan 61 year old male with hx of T2DM, ESRD on hemodialysis, PVD, Afib not on anticoagulation and hepatitis C with cirrhosis and ascites presents to the ED with 3 days of increasing weakness, SOB, and pain in his left foot.He states that the cough started 3 days ago, has been intermittent, and non-productive. He endorses intermittent nausea and anorexia but denies fever, chills, or vomiting/diarrhea. He states that he has also had increasing pain in his left foot second to severe peripheral vascular disease with calcification. He missed his dialysis appointment on Friday and missed the follow-up dialysis appointment on Friday. However, he did have dialysis today from Dr. Velez, having 3.5L of fluid removed in 3 hours. His SOB continued to get worse and he came to the ED for evaluation Confusion and weakness in patient with hepato-renal syndrome - Pt complains of three days of general malaise with stable ascites - Pt missed dialysis on Friday and Friday due to what he called "vertigo". He then had 3.5L taken off in 3 hours the day of admission. - BUN mildly elevated, no hypoglycemia, questionable sepsis as below; blood pressure elevated without headache - Ammonia level elevated at 42 indicating the patient may have a component of hepatic encephalopathy.- Continuing home lactulose. Rifaximin ordered as well -Mild hypokalemia and hyponatremia likely related to above. We will continue to monitor closely. Acute fluid overload second to ESRD second to htn, dm2, and hep c; present on admission, ongoing - JVD, edema, moist membranes, appropriate skin turgor - CXR appears to be congested with cephalization -Nephrology continues to follow and appreciate their help and guidance. - Avoid additional fluid as much as possible Acute on chronic systolic CHF; present on admission; ongoing - Last ECHO was 12/20/14 with no EF but recognition of dilated LV -Echocardiogram this admission shows an ejection fraction reduced at 45-50%. This is consistent with systolic congestive heart failure. Patient presents with acute on chronic systolic congestive heart failure - CXR appears to be congested with cephalization; pitting edema in LE, consistent with above. - Cannot diurese due to kidney failure - Continue home carvedilol and lisinopril as tolerated - Furosemide dosing per nephrology Questionable sepsis second to questionable aspiration pneumonia - leukopenia, tachycardia, no fever, no tachypnea all in the setting of ESRD with chronic leukopenia and atrial fibrillation - no lactate elevation - Very low suspicion for ongoing sepsis and will not give fluid due to his current overload picture with dyspnea. Questionable pneumonia - no cough, no fever, no chills, but does complain of sob that started today - RLL consolidation on CXR per radiology, along with pulmonary edema pic - Started on Ceftriaxone in ED prior to any blood cultures - Blood cultures ordered x 2 - Changed abx to meropenem, which was then discontinued altogether. - Sputum cx ordered and is pending, will check results. -Blood cultures ordered but taken after abx given. So far blood cultures are negative. Ulcerated and necrotic appearing left 2nd toe second to severe peripheral vascular disease s/p bilateral bypass grafts x 2 - X-ray at of left foot did not identify early osteomyelitis; does look like toe is becoming necrotic due to dry gangrene; - Dr. Gómez is currently working this patient up for intervention outpatient; per pt, recent attempt to stent arteries failed two weeks ago due to calcinosis - Wound care consult -Arterial Dopplers were performed again today and showed an occluded left superficial femoral artery and deep femoral artery with reconstitution of slow flow in the distal left popliteal artery. 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 - Not following with ID or with drum maker - prominent ascites subjectively and objectively improved with hemodialysis yesterday and today - PT/INR pending Chronic leukopenia - likely second to ESRD and chronic hepatic cirrhosis second to hepatitis C and alcohol/drug abuse - will monitor but unlikely to improve Chronic and severe peripheral vascular disease - worked up outpatient; ulcer on left 2nd toe; interventions performed bilaterally with bypassx2 on each side - edema present in LE with cyanosis below the knee DM2 not on medications - Mildly hyperglycemic on admit - Consider starting on insulin correctional in AM for BG > 180 Chronic htn - Continue home medications Pain Evaluation: Adequate Pain Control GI Prophylaxis: Not indicated VTE Prophylaxis: Sub-Q Heparin (Unfractionated) Resuscitation Status: CPR: Attempt Resuscitation Juan Manuel Alonso MD Aug 21, 2016 20:17
[2016-08-21] MEDS: Lisinopril 40 Tablet PO SCH (21:11)
--- NOTE | 2016-08-22 00:21 | NUR ---
Home meds At about 8pm, patient appeared anxious, and started asking about his home medications. Notable Aspirin, Amlodipine, Clonazepam dosing, and Lisinopril. Home medications were entered at time of admit on 08/19/16, but had not been reordered. Attempted to explain to patient that medications may be on hold because of kidney function- patient stated, "If your body is used to taking something for five years and then you don't get it, it goes crazy." Patient had reported to day [employer] that he wasn't feeling well. Heart rate had been sustaining 110's per shelter monitor. Night MD paged with information that home meds had not been restarted and that patient had two days of dialysis this admit. MD reordered some of home medications. Patient updated on new ordered, appreciative. Will pass on to day RN to have day MD address.
[2016-08-22 02:19] VITALS: BP 142/74; PULSE 108; RESP 18; O2SAT 96
[2016-08-22] MEDS: HYDROcodone-APAP 5-325 mg Tablet PO PRN ×3 (02:34→14:48)
[2016-08-22 03:15] VITALS: BP 147/81; PULSE 110; RESP 18; O2SAT 99
[2016-08-22 04:46] VITALS: PULSE 92
[2016-08-22 05:35] VITALS: BP 134/80; PULSE 112; RESP 18; O2SAT 98
[2016-08-22 07:56] LABS: BASOPHILS % (AUTO) 2.8 % (0-3); EOSINOPHILS % (AUTO) 9.9 % (0-5); MONOCYTES % (AUTO) 11.3 % (4-12); Mean Corpuscular Hemoglobin 31.6 pg (27.0-35.0); Mean Corpuscular Volume 93.9 fL (81-100); NEUTROPHILS % (AUTO) 50.5 % (40-74)
[2016-08-22 08:00] VITALS: PULSE 101
[2016-08-22] MEDS: Heparin 5,000 Unit/mL Inj SUBQ SCH (08:47)
[2016-08-22] MEDS: Lisinopril 40 Tablet PO SCH (08:48)
[2016-08-22] MEDS: Lactulose 20 Gm/30 mL 30 mL Syrup PO SCH ×2 (08:48→14:22)
[2016-08-22 09:34] VITALS: BP 126/71; PULSE 103; RESP 18; O2SAT 97
--- NOTE | 2016-08-22 11:25 | PCM.PNMED ---
Subjective Date of Service Aug 22, 2016 Subjective HD yesterday, UF 3L. BP and O2 sat stable throughout the night. no CP/SOB. Exam Vital Signs Vital Sign - Last Date Time Temp Pulse Resp B/P Pulse Ox O2 Delivery O2 Flow Rate FiO2 08/22/16 09:34 36.4 103 18 126/71 97 Nasal Cannula 1.00 Intake and Output 08/21/16 08/21/16 08/22/16 Cumulative From/Thru 15:00 23:00 07:00 08/20/16 00:01 - 08/22/16 06:00 Intake Total 950 ml 400 ml 2188 ml Output Total 3000 ml 200 ml 250 ml 7000 ml Balance -3000 ml 750 ml 150 ml -4812 ml Intake Oral 788 ml IV Total 50 ml TPN/PPN 950 ml 400 ml 1350 ml Output Urine Total 200 ml 250 ml 1000 ml Ultrafiltrate 3000 ml 6000 ml # Bowel Movements 0 1 Exam PHYSICAL EXAMINATION: General appearance: Chronically ill-looking, in no acute distress. 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 HEENT: Mild pallor. No jaundice. No JVD. No lymphadenopathy. No thyroid gland enlargement. Heart: Regular rhythm. Normal S1, S2. No murmurs, rubs or gallops. Lungs: Coarse crackles at the bases. no wheezing. Abdomen: Soft, active bowel sounds. moderate distention. Nontender. Extremities: 2+ edema on the lower extremity. absent dorsalis pedis. Some discolorations on the left foot. Lab and Diagnostics Result Diagram: 08/22/1661708/22/16617 Microbiology Name: ZACHARY GARCIA Age/Sex: 61/M Attend Dr: Kaitlin Hua MD Acct: [id number] Unit: [id number] Status: ADM IN Location: [facility] – [place] 3001-1 Re08/19/16 Disch: Specimen: [id number] Collected: 08/21/16 Status: RES Req#: [id number] Received: 08/21/16 Source: SPUTUM EXP Sp Desc : Subm Dr: Kavin Ledezma DO Ordered: GRAM SPT REFLEX, SPUTUM CULTURE Comments: Collected by Nurse/Unit? Y/N Y Procedure Result Verified Site Microbiology JN CULT SPUTUM Final 08/21/16 SPT GRAM STAIN RARE EPITHELIAL CELLS RARE POLYS RARE MIXED NORMAL HIRA This Spec is of good Quality and acceptable for Cult X-Rays, CTs and MRIs Chest X-ray IMPRESSION: Cardiomegaly as before, along with right lower lung aspiration or early pneumonia. Dictated by: Gonzalez Abdul M.D. on 08/19/2016 at 18:12 Left Foot X-ray IMPRESSION: No radiographic evidence for advanced osteomyelitis. Radiographs would have decreased sensitivity for early bone infection. Dictated by: Gonzalez Abdul M.D. on 08/19/2016 at 18:14 12-lead ECG irregularly irregular with rate < 120; concern for mild ST depression in lateral leads Cardiac Echo Impressions Echocardiogram Report Name: ZACHARY GARCIA Study Date: 08/20/2016 Height: 68 in Hospital Exam Location: [facility] Weight: 215 lb Gender: Male BSA: 2.1 m2 : 1955 Age: 61 yrs BP: 143/87 mmHg Reason For Study: Congestive Heart Failure Ordering Physician: HOSPITALIST SVHPerformed By: Chandan Garcia Referring Physician: KAVIN LEDEZMA Interpretation Summary 1. Mildly dilated left ventricle with globally reduced systolic function and an estimated EF of 45 to 50% 2. The right ventricle is not optimally visualized, however it appears at least mildly dilated. The systolic function appears low normal to mildly reduced. The estimated RVSP is 55 mm Hg. The estimated right atrial pressure is elevated. 3. There is moderate mitral annular calcification with an area of prominent calcification seen near the posterior leaflet (with a somewhat mobile calcified structure). This was seen on the previous echo of 06/04/16. Clinical correlation is recommended. The mean gradient across the mitral valve is consistent with moderate mitral stenosis (similar to the estimate of the echo of 05/2016). Assessment & Plan 1. End-stage renal disease with fluid overload. 2. Shortness of breath secondary to fluid overload and possible aspiration pneumonia. 3. Chronic systolic heart failure. 4. Chronic hepatitis C infection with history of alcoholic liver disease. 5. Severe peripheral vascular disease status post bilateral bypass graft. PLAN: 1. hold HD today, next treatment will be on Friday. 2. follow cardiology recommendation. 3. continue current antihypertensive meds. GI Prophylaxis: Not indicated VTE Prophylaxis: Sub-Q Heparin (Unfractionated) Resuscitation Status: CPR: Attempt Resuscitation Rajeev Thakur MD Aug 22, 2016 11:25
--- NOTE | 2016-08-22 14:22 | NUR ---
1430 Lactulose held Patient has order for Lactulose until 2 BM/day. Patient had 2 Bowel movements today and Lactulose was held.
--- NOTE | 2016-08-22 15:36 | NUR ---
Social Work: Discharge Data: Pt is on day 3 of hospitalization. EMR reviewed, pt discussed in rounds. D/C orders are in. RT is going to do an assessment to see if pt needs oxygen at d/c. No further d/c planning needs at this time. BRAND ENGINEER will continue to follow if needs arise. Assessment: Pt who is independent at baseline. Plan: Pt will d/c home via POV today, RT to assess for home O2 need. No further d/c planning needs at this time. BRAND ENGINEER will continue to follow if needs arise. ROBINA Brunson
--- NOTE | 2016-08-22 15:40 | PCM.DIMED ---
Discharge Instructions Date of Service Aug 22, 2016 Dates of Hospitalization Aug 19, 2016 at 22:09 Discharge Diagnosis Discharge Diagnosis End Stage Renal Disease with Fluid Overload and Peripheral Vascular Disease Diet Renal Diet Activity Limited until seen by PCP (May increase gradually as tolerated) Call your provider Fever or Chills, Shortness of breath, Bleeding, Chest pain, Vomitting, Excessive diarrhea, Weakness (unilateral), Other Patient Instructions Follow-up Provider: Juan Manuel Yadav MD Follow-up with PCP in: 2 weeks Provider: Jenny Zazueta MD Follow-up in: 1 week Additional Information Patient to resume his usual hemodialysis schedule tomorrow. Juan Manuel Alonso MD Aug 22, 2016 15:40
--- NOTE | 2016-08-22 16:19 | NUR ---
Discharge Patient given discharge orders. Patient IV removed fully intact and asymptomatic. Patient transportation called. Patient given informational packets. Patient given medication list with written explanation of when next dose is due. Patient belongings packed and reminded to take all personal belongings upon leaving. Patient awaiting transportation and informed to call when ride comes so we can get a wheelchair to assist to main entrance.
--- NOTE | 2016-08-23 09:14 | NUR ---
Wound Care Called patients DPM to let her know that patient was discharged and will need follow up for foot care/wound care.
--- NOTE | 2016-10-05 22:07 | PCM.DC.MED ---
Discharge Summary Date of Service Aug 22, 2016 Dates of Hospitalization Date of Hospital Admission Aug 19, 2016 at 22:09 Date of Discharge: Aug 22, 2016 Providers: Admitting Physician: Kaitlin Hua MD Primary Care Physician: Juan Manuel Yadav MD Attending Physician: Kaitlin Hua MD Diagnosis at Time of Discharge Diagnosis at Time of Discharge End Stage Renal Disease with Fluid Overload and Peripheral Vascular Disease Consultations Nephrology Procedures XRay, CTs & MRIs Chest X-ray IMPRESSION: Cardiomegaly as before, along with right lower lung aspiration or early pneumonia. Dictated by: Gonzalez Abdul M.D. on 08/19/2016 at 18:12 Left Foot X-ray IMPRESSION: No radiographic evidence for advanced osteomyelitis. Radiographs would have decreased sensitivity for early bone infection. Dictated by: Gonzalez Abdul M.D. on 08/19/2016 at 18:14 ECG 12 Lead irregularly irregular with rate < 120; concern for mild ST depression in lateral leads Cardiac Echo Impression Echocardiogram Report Name: ZACHARY GARCIA Study Date: 08/20/2016 Height: 68 in Hospital Exam Location: [facility] Weight: 215 lb Gender: Male BSA: 2.1 m2 : 1955 Age: 61 yrs BP: 143/87 mmHg Reason For Study: Congestive Heart Failure Ordering Physician: HOSPITALIST SVHPerformed By: Chandan Garcia Referring Physician: KAVIN LEDEZMA Interpretation Summary 1. Mildly dilated left ventricle with globally reduced systolic function and an estimated EF of 45 to 50% 2. The right ventricle is not optimally visualized, however it appears at least mildly dilated. The systolic function appears low normal to mildly reduced. The estimated RVSP is 55 mm Hg. The estimated right atrial pressure is elevated. 3. There is moderate mitral annular calcification with an area of prominent calcification seen near the posterior leaflet (with a somewhat mobile calcified structure). This was seen on the previous echo of 06/04/16. Clinical correlation is recommended. The mean gradient across the mitral valve is consistent with moderate mitral stenosis (similar to the estimate of the echo of 05/2016). Brief History 61 year old male with hx of T2DM, ESRD on hemodialysis, PVD, Afib not on anticoagulation and hepatitis C with cirrhosis and ascites presents to the ED with 3 days of increasing weakness, SOB, and pain in his left foot.He states that the cough started 3 days ago, has been intermittent, and non-productive. He endorses intermittent nausea and anorexia but denies fever, chills, or vomiting/diarrhea. He states that he has also had increasing pain in his left foot second to severe peripheral vascular disease with calcification. He missed his dialysis appointment on Friday and missed the follow-up dialysis appointment on Friday. However, he did have dialysis today from Dr. Velez, having 3.5L of fluid removed in 3 hours. His SOB continued to get worse and he came to the ED for evaluation. His PVD is managed here by Dr. Gómez. He underwent a cath procedure 2 weeks ago in an effort to improve blood flow, which says failed and will now be managed by [facility] or . In the ED the patient was given ceftriaxone for presumed pneumonia by CXR; the patient was admitted to the hospital service for further evaluation treatment. Hospital Course 61 year old male with hx of T2DM, ESRD on hemodialysis, PVD, Afib not on anticoagulation and hepatitis C with cirrhosis and ascites presents to the ED with 3 days of increasing weakness, SOB, and pain in his left foot.He states that the cough started 3 days ago, has been intermittent, and non-productive. He endorses intermittent nausea and anorexia but denies fever, chills, or vomiting/diarrhea. He states that he has also had increasing pain in his left foot second to severe peripheral vascular disease with calcification. He missed his dialysis appointment on Friday and missed the follow-up dialysis appointment on Friday. However, he did have dialysis today from Dr. Velez, having 3.5L of fluid removed in 3 hours. His SOB continued to get worse and he came to the ED for evaluation Confusion and weakness in patient with hepato-renal syndrome - Pt complains of three days of general malaise with stable ascites - Pt missed dialysis on Friday and Friday due to what he called "vertigo". He then had 3.5L taken off in 3 hours the day of admission. - BUN mildly elevated, no hypoglycemia, questionable sepsis as below; blood pressure elevated without headache - Ammonia level elevated at 42 indicating the patient may have a component of hepatic encephalopathy.- Continuing home lactulose. Rifaximin ordered as well -Mild hypokalemia and hyponatremia likely related to above. We will continue to monitor closely. Acute fluid overload second to ESRD second to htn, dm2, and hep c; present on admission, ongoing - JVD, edema, moist membranes, appropriate skin turgor - CXR appears to be congested with cephalization -Nephrology continues to follow and appreciate their help and guidance. - Avoid additional fluid as much as possible Acute on chronic systolic CHF; present on admission; ongoing - Last ECHO was 12/20/14 with no EF but recognition of dilated LV -Echocardiogram this admission shows an ejection fraction reduced at 45-50%. This is consistent with systolic congestive heart failure. Patient presents with acute on chronic systolic congestive heart failure - CXR appears to be congested with cephalization; pitting edema in LE, consistent with above. - Cannot diurese due to kidney failure - Continue home carvedilol and lisinopril as tolerated - Furosemide dosing per nephrology Questionable sepsis second to questionable aspiration pneumonia - leukopenia, tachycardia, no fever, no tachypnea all in the setting of ESRD with chronic leukopenia and atrial fibrillation - no lactate elevation - Very low suspicion for ongoing sepsis and will not give fluid due to his current overload picture with dyspnea. Questionable pneumonia - no cough, no fever, no chills, but does complain of sob that started today - RLL consolidation on CXR per radiology, along with pulmonary edema pic - Started on Ceftriaxone in ED prior to any blood cultures - Blood cultures ordered x 2 - Changed abx to meropenem, which was then discontinued altogether. - Sputum cx ordered and is pending, will check results. -Blood cultures ordered but taken after abx given. So far blood cultures are negative. Ulcerated and necrotic appearing left 2nd toe second to severe peripheral vascular disease s/p bilateral bypass grafts x 2 - X-ray at of left foot did not identify early osteomyelitis; does look like toe is becoming necrotic due to dry gangrene; - Dr. Gómez is currently working this patient up for intervention outpatient; per pt, recent attempt to stent arteries failed two weeks ago due to calcinosis - Wound care consult -Arterial Dopplers were performed again today and showed an occluded left superficial femoral artery and deep femoral artery with reconstitution of slow flow in the distal left popliteal artery. 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 - Not following with ID or with hl7 interface developer - prominent ascites subjectively and objectively improved with hemodialysis yesterday and today - PT/INR pending Chronic leukopenia - likely second to ESRD and chronic hepatic cirrhosis second to hepatitis C and alcohol/drug abuse - will monitor but unlikely to improve Chronic and severe peripheral vascular disease - worked up outpatient; ulcer on left 2nd toe; interventions performed bilaterally with bypassx2 on each side - edema present in LE with cyanosis below the knee DM2 not on medications - Mildly hyperglycemic on admit - Consider starting on insulin correctional in AM for BG > 180 Chronic htn - Continue home medications Exam Exam General: Patient is in no apparent distress. He was seen after hemodialysis and was quite comfortable. He is still combining of some shortness of breath. HEENT: Head is atraumatic normocephalic. Eyes: Pupils are equally round and reactive to light and accommodation. Extraocular muscles are intact. Sclera are white anicteric. Subconjunctival mucosa is pink. Ears and nose are unremarkable. Oropharynx: There is no mucosal lesions, there is no thrush, there is no pharyngitis. Neck: Is supple, there are no nodes or masses or tenderness. Chest: Is clear to auscultation and percussion. There are no rales, rhonchi, wheezes or rubs. Heart: Rate, rhythm is regular. There is no murmur, rub or gallop. Abdomen: Good bowel sounds are present. Abdomen is soft, nontender, no organomegaly or masses were appreciated. Extremities: The distal tip of the left second toe shows some evidence of dry gangrene. Pulses are diminished bilaterally. Neurologic: There are no focal neurological deficits. Cranial nerves II through XII are intact. There are no sensory or motor deficits. Psychiatric: Patients mood is calm and shows no sign of agitation. Genital: Deferred Rectal: Deferred Test 08/19/16 18:01 08/20/16 00:05 08/20/16 05:15 08/20/16 07:00 Lactic Acid Level 0.8mmol/L (0.4-2.0) Hold Hall Top Tube Received (Received) Prothrombin Time 11.2sec (8.1-12.5) Prothromb Time International Ratio 1.05ratio Hemoglobin A1c 5.0% (4.8-5.6) Thyroid Stimulating Hormone (TSH) 6.190uIU/mL (0.450-4.500) Free Thyroxine 1.11ng/dL (0.82-1.77) Ammonia 42ug/dL (18-53) Triglycerides Level 91mg/dL (0-149) Cholesterol Level 104mg/dL (100-199) LDL Cholesterol, Calculated 41.800mg/dL (0-99) VLDL Cholesterol 18.200mg/dL HDL Cholesterol 44mg/dL (>39) Cholesterol/HDL Ratio 2.36 (0.0-4.4) Hepatitis C Virus Quantitation [id number] (.) Hepatitis C RNA (PCR) log10 6.551 (.) Hepatitis C Comment Comment (.) Test 08/21/16 05:40 08/21/16 10:31 08/22/16 06:18 Phosphorus Level 5.7mg/dL (2.5-4.9) Magnesium Level 2.1mg/dL (1.6-2.6) Urine Color Bloody (YELLOW) Urine Appearance Slightly cloudy Urine pH 7.0 (5.0-8.0) Urine Specific Hubbell 1.020 (1.003-1.035) Urine Protein 100mg/dL (NEG,TRACE) Urine Glucose (UA) Negativemg/dL (NEGATIVE) Urine Ketones Negativemg/dL (NEGATIVE) Urine Occult Blood Large (NEGATIVE) Urine Nitrite Negative (NEGATIVE) Urine Bilirubin Negative (NEGATIVE) Urine Urobilinogen Normalmg/dL (NORMAL) Urine Leukocyte Esterase Moderate (NEGATIVE) Urine RBC >50/hpf (0-2) Urine WBC 6-10/hpf (0-5) Urine Epithelial Cells Occasional/hpf (NONE-MOD) Urine Crystals None seen (NONE SEEN) Urine Bacteria Few/hpf (NONE-FEW) Urine Hyaline Casts None/lpf (NONE) Urine Granular Casts None seen (NONE SEEN) Urine Waxy Casts None seen (NONE SEEN) Urine Red Blood Cell Casts None seen (NONE SEEN) Urine White Blood Cell Casts None seen (NONE SEEN) Urine Mucus None seen (None Seen) Urine Trichomonas None seen (NONE SEEN) Urine Yeast None (NONE SEEN) Urinalysis Comment None Urine Culture Reflexed Indicated White Blood Count 3.5th/mm3 (3.8-10.1) Red Blood Count 3.61mil/mm3 (4.40-5.80) Hemoglobin 11.4g/dL (13.8-17.2) Hematocrit 33.9% (41.0-50.0) Mean Corpuscular Volume 93.9fL (81-100) Mean Corpuscular Hemoglobin 31.6pg (27.0-35.0) Mean Corpuscular Hemoglobin Concent 33.6% (32.0-37.0) Red Cell Distribution Width 14.9% (12.3-15.4) Platelet Count bebeto/L (150-400) Neutrophils (%) (Auto) 50.5% (40-74) Lymphocytes (%) (Auto) 24.4% (14-46) Monocytes (%) (Auto) 11.3% (4-12) Eosinophils (%) (Auto) 9.9% (0-5) Basophils (%) (Auto) 2.8% (0-3) Sodium Level 135mEq/L (134-144) Potassium Level 4.8mEq/L (3.5-5.2) Chloride Level 94mEq/L (97-108) Carbon Dioxide Level 21mmol/L (18-29) Blood Urea Nitrogen 39mg/dL (8-27) Creatinine 7.19mg/dL (0.76-1.27) Estimat Glomerular Filtration Rate 8mL/min (>59) Glucose Level 89mg/dL (60-99) Calcium Level 9.3mg/dL (8.5-10.1) Total Bilirubin 0.3mg/dL (0.0-1.2) Aspartate Amino Transf (AST/SGOT) 23U/L (0-50) Alanine Aminotransferase (ALT/SGPT) 18U/L (0-44) Alkaline Phosphatase 73U/L (25-160) Total Protein 7.2g/dL (6.4-8.4) Albumin 4.2g/dL (3.4-5.0) Procalcitonin 0.25ng/mL (See Comment) Microbiology Results Name: ZACHARY GARCIA Age/Sex: 61/M Attend Dr: Kaitlin Hua MD Acct: [id number] Unit: [id number] Status: ADM IN Location: [facility] [place] 3001-1 Re08/19/16 Disch: Specimen: [id number] Collected: 08/21/16 Status: RES Req#: [id number] Received: 08/21/16 Source: SPUTUM EXP Sp Desc : Subm Dr: Kavin Ledezma DO Ordered: GRAM SPT REFLEX, SPUTUM CULTURE Comments: Collected by Nurse/Unit? Y/N Y Procedure Result Verified Site Microbiology JN CULT SPUTUM GS Final 01/11/17-1729 SPT GRAM STAIN RARE EPITHELIAL CELLS RARE POLYS RARE MIXED NORMAL HIRA This Spec is of good Quality and acceptable for Cult Discharge Medications Discharge Medications Amlodipine (Amlodipine) 10 Mg Tablet 10 MG PO HS (Reported) Aspirin (Aspirin) 81 Mg Tablet 81 MG PO DAILY (Reported) Carvedilol (Coreg) 25 Mg Tablet 50 MG PO QPM (Reported) Carvedilol (Carvedilol) 25 Mg Tablet 25 MG PO MORNING (Reported) Finasteride (Finasteride) 5 Mg Tablet 5 MG PO DAILY (Reported) Lactulose (Lactulose) 20 Gm/30 Ml Solution 20 GM PO TID Prescribed by: LARISSA BASILIO DO Lisinopril (Lisinopril) 40 Mg Tablet 40 MG PO DAILY (Reported) Rifaximin (Rifaximin) 500 Gm Powder 500 GM MC BID Prescribed by: LARISSA BASILIO DO Vit B Cmplx 3/FA/Vit C/Biotin (Nephro-Swetha Rx) 1 Each Tablet 1 EACH PO DAILY ( Reported) As needed Calcium Carbonate (Tums) 500 Mg Tab.chew 500 MG PO TID PRN PRN For Dyspepsia or Heartburn (Reported) Clonazepam (Clonazepam) 1 Mg Tab 1 MG PO HS PRN PRN For Dizziness (Reported) Hydrocodone-Acetaminophen 5-325 mg (Hydrocodone-Acetaminophen 5-325 mg) 1 Each Tablet 2 TAB PO TID PRN PRN For Pain (Reported) Followup Plan Disposition: Patient is being discharged home. Discharge Diet: Renal Diet Discharge Activity: Limited until seen by PCP (May increase gradually as tolerated) Follow-up Provider: Juan Manuel Yadav MD Follow-up with PCP in: 2 weeks Provider: Jenny Zazueta MD Follow-up in: 1 week Time spent Time spent on discharging this patient was greater than 35 minutes, over half of which was involved in counseling and coordination of care. Juan Manuel Alonso MD Oct 05, 2016 22:07
== END 2016-08-22 17:17 | disposition home or self-care (01) | DRG 682 ==
LOC: EDBD 16:31 → EDUNIT# 16:31 → SED 16:31 → MPC 22:09
PROVIDERS: ADMIT Specialist; ATTEND Specialist
PROC: 5A1D60Z (ICD-10-PCS; principal; 2016-08-20)
DX: I12.0 Hypertensive chronic kidney disease with stage 5 chronic kidney disease or end stage renal disease (principal); N18.6 End stage renal disease; I50.22 Chronic systolic (congestive) heart failure; N19 Unspecified kidney failure; B18.2 Chronic viral hepatitis C; I48.2 Chronic atrial fibrillation; I73.9 Peripheral vascular disease, unspecified; Z99.2 Dependence on renal dialysis; E11.21 Type 2 diabetes mellitus with diabetic nephropathy; I05.0 Rheumatic mitral stenosis; L89.150 Pressure ulcer of sacral region, unstageable; L97.529 Non-pressure chronic ulcer of other part of left foot with unspecified severity; D63.1 Anemia in chronic kidney disease; K70.30 Alcoholic cirrhosis of liver without ascites; D72.819 Decreased white blood cell count, unspecified; Z88.0 Allergy status to penicillin; Z87.891 Personal history of nicotine dependence; Z95.828 Presence of other vascular implants and grafts; Z91.15 Patient's noncompliance with renal dialysis; Z79.82 Long term (current) use of aspirin